=== PATIENT | female | born 1990 | race Caucasian/White ===

== ENCOUNTER 2016-08-31 18:48 | Emergency (ER) | payer MEDICAID ==
[2016-08-31] MEDS ORDERED: Buprenorphine TAB* 8 MG PO ONE ×2 (20:09→21:30)
[2016-08-31 20:52] LABS: Urine Bilirubin Negative (Negative); Urine Glucose Negative (Negative); Urine Nitrite Negative (Negative)
[2016-08-31 21:10] LABS: Hematocrit 39 % (35-47); Hemoglobin 12.9 g/dl (12.0-16.0); Mean Corpuscular HGB Conc 33 g/dl (31-36); Mean Corpuscular Hemoglobin 31 pg (27-31); Mean Corpuscular Volume 94 fL (80-97); Mean Platelet Volume 9 um3 (7.4-10.4); Red Blood Count 4.17 10^6/ul (4.0-5.4); Red Cell Distribution Width 14 % (10.5-15); White Blood Count 13.7 10^3/ul (3.5-10.8)
[2016-08-31 21:15] LABS: Albumin 3.3 g/dL (3.2-5.2); BUN/Creatinine Ratio 15.2 (8-20); Calcium 9.1 mg/dL (8.6-10.3); EGFR African American 212.9 (>60); EGFR Non-African American 165.5 (>60); Globulin 3.7 g/dL (2-4); Potassium 3.8 mmol/L (3.5-5.0); Total Bilirubin 0.4 mg/dL (0.2-1.0)
[2016-08-31 22:40] VITALS: BP 94/58
--- NOTE | 2016-08-31 22:50 | ED ---
Geoffrey Angulo Benjamin, scribed for Terri Tyler MD on 08/31/16 at 2106 . Substance Abuse/Use - HPI Summary HPI Summary: 26yo female who is 7 months was brought in by police for heroin withdrawal. Last use was last night. Unable to obtain full history from the pt as she is currently going through withdrawal and is in distress. - History Of Current Complaint Chief Complaint: EDGeneral Stated Complaint: 7 MONTHS PREG/COMING OFF [facility] Time Seen by Provider: 08/31/16 19:16 Hx Obtained From: Patient Hx From Patient Unobtainable Due To: Other - withdrawal distress ?: Yes Onset/Duration of Drug/ETOH Abuse: Days - yesterday Ingestion History: Type/Name Of Drug - heroin Overdose Characteristics: IV Timing Of Abuse: Binge Use Severity Initially: Moderate Severity Currently: Moderate Alleviating Factor(s): Nothing Associated Signs And Symptoms: Negative - Allergies/Home Medications Allergies/Adverse Reactions: Allergies Allergy/AdvReac Type Severity Reaction Status Date / Time Amoxicillin Allergy Hives Verified 08/31/16 19:00 Azithromycin Allergy Hives Verified 08/31/16 19:00 PMH/Surg Hx/FS Hx/Imm Hx Psychiatric History: Reports: Hx Substance Abuse - heroin Infectious Disease History: No Infectious Disease History: Denies: Traveled Outside the [place] in Last 30 Days - Family History Known Family History: Positive: Unknown - unable to obtain, level 5 caveat - Social History Occupation: Unemployed Lives: With Family Alcohol Use: Occasionally Substance Use Type: Reports: Heroin Substance Use Comment - Amount & Last Used: 08/30/16 Smoking Status (MU): Heavy Every Day Tobacco Smoker Review of Systems - ROS Summary Review of Systems Summary: unable to obtain full ROS, level 5 caveat. Negative: Chest Pain Negative: Shortness Of Breath Negative: Abdominal Pain Negative: Rash All Other Systems Reviewed And Are Negative: No Physical Exam Triage Information Reviewed: Yes Vital Signs On Initial Exam: Initial Vitals Temp Pulse Resp BP Pulse Ox 97.2 F 95 17 129/84 99 08/31/16 18:56 08/31/16 18:56 08/31/16 18:56 08/31/16 18:56 08/31/16 18:56 Vital Signs Reviewed: Yes Appearance: Positive: Ill-Appearing - uncomfortable, Pain Distress - uncomfortable Skin: Positive: Warm, Skin Color Reflects Adequate Perfusion, Other - clamy Head/Face: Positive: Normal Head/Face Inspection Eyes: Positive: Other: - pupils are 6mm wide ENT: Positive: Pharynx normal, TMs normal Neck: Positive: Supple, Nontender Respiratory/Lung Sounds: Positive: Clear to Auscultation, Breath Sounds Present. Negative: Rales, Rhonchi Cardiovascular: Positive: RRR. Negative: Murmur, Rub Abdomen Description: Positive: Nontender, Other: - gravid belly. Negative: Soft Bowel Sounds: Positive: Present Musculoskeletal: Positive: Strength/ROM Intact Neurological: Positive: Sensory/Motor Intact, Alert, Oriented to Person Place, Time, CN Intact II-III Psychiatric: Positive: Affect/Mood Appropriate - [place] Coma Scale Coma Scale Total: 15 Diagnostics - Vital Signs Vital Signs Temp Pulse Resp BP Pulse Ox 08/31/16 19:26 98.9 F 80 16 92/63 98 08/31/16 18:56 97.2 F 95 17 129/84 99 - Laboratory Lab Results: Lab Results 08/31/16 Range/Units 19:15 Urine Color Yellow Urine Appearance Cloudy Urine pH 8.0 (5-9) Ur Specific [place] 1.012 (1.010-1.030) Urine Protein Negative (Negative) Urine Ketones Negative (Negative) Urine Blood Negative (Negative) Urine Nitrate Negative (Negative) Urine Bilirubin Negative (Negative) Urine Urobilinogen Negative (Negative) Ur Leukocyte Esterase Negative (Negative) Urine Glucose Negative (Negative) Result Diagrams: 08/31/16 20:50 08/31/16 20:50 Lab Statement: Any lab studies that have been ordered have been reviewed, and results considered in the medical decision making process. Re-Evaluation - Re-Evaluation First Eval Re-Evaluation Time: 21:28 - Pupils are still wide, still clamy. Will give her the second dose of 8mg Suboxone. Course/Dx - Course Course Of Treatment: pt reports she has used 16 mg of suboxone on the street before but only a few times, gave her 8 mg of buprenorphine followed by a second dose of 8 with some relief of her withdrawel symptoms, wbc slightly elevated (likely 2ndary to 3rd trimester of ) fht were good, pt ok to go - Diagnoses Provider Diagnoses: Acute narcotic withdrawal Discharge - Discharge Plan Condition: Stable Disposition: HOME Patient Education Materials: Opioid Withdrawal (ED) Referrals: [facility] [Outside] [facility] [Outside] Additional Instructions: Patient is medically cleared to go to nursing home. The documentation as recorded by the Geoffrey jang Benjamin accurately reflects the service I personally performed and the decisions made by me, Terri Tyler MD.
== END 2016-08-31 22:43 | disposition home or self-care (01) ==
LOC: ED 18:48
DX: F11.23 Opioid dependence with withdrawal (principal); O26.893 Other specified pregnancy related conditions, third trimester; Z3A.00 Weeks of gestation of pregnancy not specified
CPT/HCPCS: 36415; 80053; 81003; 85025; 99283; A9270-GY

== ENCOUNTER 2017-03-07 17:48 | Inpatient (IN) | payer OTHER ==
[2017-03-07] MEDS ORDERED: NS 0.9% 1000 ML*IV.FLUID IV ONE (22:17)
[2017-03-07] MEDS ORDERED: Ketorolac INJ* 30 MG/ML 1 ML VIAL IV ONE (22:17)
[2017-03-07] MEDS ORDERED: Vancomycin(*) 1,000 MG in NS 0.9% 250 ML* 250 ML IVPB ONE (22:19)
[2017-03-07] MEDS: Acetaminophen TAB* 325 MG PO ONE ×2 (23:15→23:38)
[2017-03-07 23:18] LABS: ABS Basophils 0.1 10^3/ul (0-0.2); ABS Eosinophils 0.4 10^3/ul (0-0.6); ABS Lymphocytes 1.4 10^3/ul (1.0-4.8); ABS Monocytes 0.6 10^3/ul (0-0.8); ABS Nucleated RBC 0 10^3/ul; Eosinophil % 5.7 % (0-6); Hematocrit 35 % (35-47); Hemoglobin 11.8 g/dl (12.0-16.0); Lymphocyte % 18.9 % (25-47); Mean Corpuscular HGB Conc 34 g/dl (31-36); Mean Corpuscular Hemoglobin 29 pg (27-31); Mean Corpuscular Volume 87 fL (80-97); Mean Platelet Volume 9 um3 (7.4-10.4); Nucleated Red Blood Cells % 0; Platelet Count 233 10^3/ul (150-450); Red Blood Count 4.03 10^6/ul (4.0-5.4); Red Cell Distribution Width 14 % (10.5-15); White Blood Count 7.6 10^3/ul (3.5-10.8)
[2017-03-07 23:35] LABS: EGFR Non-African American 119.5 (>60)
[2017-03-07 23:51] LABS: INR 0.99 (0.77-1.02)
[2017-03-08] MEDS ORDERED: Cefepime(*) 2 GM in NS 0.9% 50 ML* 50 ML IVPB ONE (01:06)
--- NOTE | 2017-03-08 01:15 | ED ---
Sadie Angulo Edward, scribed for Judith Su MD on 03/07/17 at 2212 . Upper Extremity Pain - HPI Summary HPI Summary: 26 y/o female presents to the ED c/o R hand swelling and pain starting 3 days ago s/p heroin injection, still present. Pain rated 9/10 at triage. Associated sx: discharge last night; pt states her "abscess" popped last night. Pt states she had a fever earlier (100). Pt injected heroin 4-5 days ago; the pt states the needle was brand-new and used before by the pt. Denies infection previously. - History of Current Complaint Chief Complaint: EDExtremityUpper Stated Complaint: RT HAND ABSCESS Time Seen by Provider: 03/07/17 21:49 Hx Obtained From: Patient Onset/Duration: Started Days Ago Timing: Constant Pain Location: Hand - R Aggravating Factor(s): Nothing Alleviating Factor(s): Nothing Associated Signs & Symptoms: Positive: Swelling, Redness, Fever, Other - discharge - Allergies/Home Medications Allergies/Adverse Reactions: Allergies Allergy/AdvReac Type Severity Reaction Status Date / Time Amoxicillin Allergy Hives Verified 08/31/16 19:00 Azithromycin Allergy Hives Verified 08/31/16 19:00 PMH/Surg Hx/FS Hx/Imm Hx Previously Healthy: No Endocrine/Hematology History: Denies: Other Endocrine/Hematological Disorders - No prior infections Psychiatric History: Reports: Hx Substance Abuse - heroin Infectious Disease History: No Infectious Disease History: Denies: Traveled Outside the [place] in Last 30 Days - Family History Known Family History: Positive: Unknown - unable to obtain, level 5 caveat - Social History Alcohol Use: None Hx Substance Use: Yes Substance Use Type: Reports: Heroin Substance Use Comment - Amount & Last Used: 08/30/16 Hx Tobacco Use: Yes Smoking Status (MU): Heavy Every Day Tobacco Smoker Review of Systems Positive: Fever Eyes: Negative ENT: Negative Cardiovascular: Negative Respiratory: Negative Gastrointestinal: Negative Genitourinary: Negative Musculoskeletal: Negative Positive: Other - redness, swelling, pain and discharge @ R hand Neurological: Negative Psychological: Normal All Other Systems Reviewed And Are Negative: Yes Physical Exam - Summary Physical Exam Summary: VITAL SIGNS: Reviewed. GENERAL: Patient is a well-developed and nourished female who is lying comfortable in the stretcher. Patient is not in any acute respiratory distress. HEAD AND FACE: No signs of trauma. No ecchymosis, hematomas or skull depressions. No sinus tenderness. EYES: PERRLA, EOMI x 2, No injected conjunctiva, no nystagmus. EARS: Hearing grossly intact. Ear canals and tympanic membranes are within normal limits. MOUTH: Oropharynx within normal limits. NECK: Supple, trachea is midline, no adenopathy, no JVD, no carotid bruit, no c- spine tenderness, neck with full ROM. CHEST: Symmetric, no tenderness at palpation LUNGS: Clear to auscultation bilaterally. No wheezing or crackles. CVS: Regular rate and rhythm, S1 and S2 present, no murmurs or gallops appreciated. ABDOMEN: Soft, non-tender. No signs of distention. No rebound no guarding, and no masses palpated. Bowel sounds are normal. EXTREMITIES: FROM in all major joints, no edema, no cyanosis or clubbing. NEURO: Alert and oriented x 3. No acute neurological deficits. Speech is normal and follows commands. SKIN: R hand is swollen, red and tender more over the radial side and more over the dorsal surface. There is no pain with hyperextension of any of the fingers. There is also redness and swelling of R forearm. There is no discharge that I can see. At the R hand there is a small open area but no discharge at around 4 mm in diameter. Triage Information Reviewed: Yes Vital Signs On Initial Exam: Initial Vitals Temp Pulse Resp BP Pulse Ox 99.6 F 87 14 115/84 97 03/07/17 17:55 03/07/17 17:55 03/07/17 17:55 03/07/17 17:55 03/07/17 17:55 Vital Signs Reviewed: Yes - [place] Coma Scale Coma Scale Total: 15 Diagnostics - Vital Signs Vital Signs Temp Pulse Resp BP Pulse Ox 03/07/17 21:26 98.1 F 03/07/17 20:06 100.1 F 90 14 100/65 96 03/07/17 17:55 99.6 F 87 14 115/84 97 - Laboratory Result Diagrams: 03/07/17 23:02 03/07/17 23:02 Lab Statement: Any lab studies that have been ordered have been reviewed, and results considered in the medical decision making process. Re-Evaluation - Re-Evaluation 1 Re-Evaluation Time: 23:27 Comment: Pt wants to sign out AMA 2 Re-Evaluation Time: 01:02 Comment: Pt agrees to be admitted Course/Dx - Course Assessment/Plan: 26 y/o female presents to the ED with R hand pain s/p heroin injection around 4-5 days ago[address] Spoke with Dr. Estrella, who agreed to admit the pt at 01:06. Pt will be admitted, pt is agreeable with plan. - Diagnoses Provider Diagnoses: Cellulitis of right hand - Physician Notifications Discussed Care of Patient With: Albert Estrella Time Discussed With Above Provider: 01:06 Instructed by Provider To: Admit As Inpatient Discharge - Discharge Plan Condition: Stable Disposition: ADMITTED TO [facility] Referrals: Anabela HARPER,Yohannes Ruff [Primary Care Provider] - The documentation as recorded by the Sadie jang Edward accurately reflects the service I personally performed and the decisions made by me, Judith Su MD.
[2017-03-08] MEDS ORDERED: Cefepime(*) 2 GM in D5W 50 ML BAG* 50 ML IVPB ONE (01:20)
[2017-03-08] MEDS ORDERED: Acetaminophen TAB* 325 MG PO PRN (04:33)
[2017-03-08] MEDS ORDERED: Ondansetron INJ* 2 MG/ML VIAL IV PRN (04:33)
[2017-03-08] MEDS ORDERED: NS 0.9% 1000 ML* 1,000 ML IV SCH (04:45)
[2017-03-08] MEDS ORDERED: Vancomycin per Pharmacy* NOTE FOLLOW UP SCH (05:00)
[2017-03-08 05:24] VITALS: BP 93/63
[2017-03-08] MEDS ORDERED: Buprenorphine/Naloxone 8-2 MG SL TAB* 1 TAB PO SCH (06:00)
[2017-03-08] MEDS ORDERED: Omeprazole CAP* 20 MG PO SCH (06:00)
--- NOTE | 2017-03-08 06:39 | HP ---
H&P (Free Text) History and Physical: Combined H&P/Discharge Summary PCP: Dr Peñaloza of [facility] Date/Time: 03/08/2017 0430 CC: R arm pain HPI: Ms King is a 26YO female active heroine addict admitting to injecting 6- 8x/day for past "few years". She was injecting into her R wrist at the posterolateral base of the thumb 4 days ago and "missed" with subsequent development of pain, swelling, and erythema streaking up the arm to the axilla. She denies F/C, sweats, N/V, W/N/T of the hand/fingers, or other issues. PMedHx active heroine addiction Ambulatory Orders NK [No Home Medications Reported] 03/08/17 Allergies Amoxicillin Allergy (Verified 08/31/16 19:00) Hives Azithromycin Allergy (Verified 08/31/16 19:00) Hives PSurgHx eustachian tubes tonsillectomy tubal ligation SocHx: no tobacco or alcohol, 6-8 injections of heroine daily for "a few years" ; lives at home with her mother; unemployed; full code status FamHx: Mother: alive in her 50s, healthy; Father: alive in his 50s, healthy; Sisters x3: healthy; denies others with addiction ROS: as above, otherwise reviewed and all were negative vitals: Vital Signs Temp 37.3 C 03/08/17 05:23 Pulse 86 03/08/17 05:23 Resp 16 03/08/17 05:23 BP 93/63 03/08/17 05:23 Pulse Ox 96 03/08/17 05:23 Intake & Output 03/07/17 03/07/17 03/08/17 11:59 23:59 11:59 Weight 49.895 kg Constitutional: NAD, normally developed, thin, unkempt, malodorous white female HEENM: atraumatic; sclera/conjunctiva: anicteric/clear; hearing: clinically intact; oropharynx: clear, mucosa moist Neck: soft tissue: non-tender; thyroid: normal Pulmonary: clear to auscultation bilaterally, good aeration, no accessory muscle use CV: RR/RR, normal S1S2, no murmur, no carotid bruit, no jugular venous distention, 2+ B DP/PT, RUE edema Abdominal: soft, non-distended, non-tender, no rebound/guarding/rigidity, normoactive bowel sounds, no hepatosplenomegaly or masses, no costovertebral angle tenderness Musculoskeletal: general: grossly intact; gait: stable Integumental: RUE with draining area at the postero-lateral base of the thumb associated with induration and streaking up the arm anteriorly to the axilla Psychiatric orientation: AA&O to PPS affect: calm mood: cooperative eye contact: poor content: seemingly reliable responses: timely insight: poor Testing: Lab Results 03/07/17 03/07/17 03/07/17 Range/Units 23:02 23:02 23:02 WBC (3.5-10.8) 10^3/ul RBC (4.0-5.4) 10^6/ul Hgb (12.0-16.0) g/dl Hct (35-47) % MCV (80-97) fL MCH (27-31) pg MCHC (31-36) g/dl RDW (10.5-15) % Plt Count (150-450) 10^3/ul MPV (7.4-10.4) um3 Neut % (Auto) (38-83) % Lymph % (Auto) (25-47) % [place] % (Auto) (1-9) % Eos % (Auto) (0-6) % Baso % (Auto) (0-2) % Absolute Neuts (auto) (1.5-7.7) 10^3/ul Absolute Lymphs (auto) (1.0-4.8) 10^3/ul Absolute Monos (auto) (0-0.8) 10^3/ul Absolute Eos (auto) (0-0.6) 10^3/ul Absolute Basos (auto) (0-0.2) 10^3/ul Absolute Nucleated RBC 10^3/ul Nucleated RBC % INR (Anticoag Therapy) 0.99 (0.77-1.02) APTT 34.3 (26.0-36.3) seconds Sodium 136 (133-145) mmol/L Potassium 3.6 (3.5-5.0) mmol/L Chloride 99 L (101-111) mmol/L Carbon Dioxide 29 (22-32) mmol/L Anion Gap 8 (2-11) mmol/L BUN 9 (6-24) mg/dL Creatinine 0.61 (0.51-0.95) mg/dL Est GFR ( Amer) 153.7 (>60) Est GFR (Non-Af Amer) 119.5 (>60) BUN/Creatinine Ratio 14.8 (8-20) Glucose 87 (70-100) mg/dL Lactic Acid 1.4 (0.5-2.0) mmol/L Calcium 9.2 (8.6-10.3) mg/dL Total Bilirubin 0.40 (0.2-1.0) mg/dL AST 12 L (13-39) U/L ALT 8 (7-52) U/L Alkaline Phosphatase 58 (34-104) U/L C-Reactive Protein 105.83 H (< 5.00) mg/L Total Protein 7.5 (6.4-8.9) g/dL Albumin 3.5 (3.2-5.2) g/dL Globulin 4.0 (2-4) g/dL Albumin/Globulin Ratio 0.9 L (1-3) Beta HCG, Quant < 0.60 mIU/mL 03/07/17 Range/Units 23:02 WBC 7.6 (3.5-10.8) 10^3/ul RBC 4.03 (4.0-5.4) 10^6/ul Hgb 11.8 L (12.0-16.0) g/dl Hct 35 (35-47) % MCV 87 (80-97) fL MCH 29 (27-31) pg MCHC 34 (31-36) g/dl RDW 14 (10.5-15) % Plt Count 233 (150-450) 10^3/ul MPV 9 (7.4-10.4) um3 Neut % (Auto) 66.4 (38-83) % Lymph % (Auto) 18.9 L (25-47) % [place] % (Auto) 8.0 (1-9) % Eos % (Auto) 5.7 (0-6) % Baso % (Auto) 1.0 (0-2) % Absolute Neuts (auto) 5.0 (1.5-7.7) 10^3/ul Absolute Lymphs (auto) 1.4 (1.0-4.8) 10^3/ul Absolute Monos (auto) 0.6 (0-0.8) 10^3/ul Absolute Eos (auto) 0.4 (0-0.6) 10^3/ul Absolute Basos (auto) 0.1 (0-0.2) 10^3/ul Absolute Nucleated RBC 0 10^3/ul Nucleated RBC % 0 INR (Anticoag Therapy) (0.77-1.02) APTT (26.0-36.3) seconds Sodium (133-145) mmol/L Potassium (3.5-5.0) mmol/L Chloride (101-111) mmol/L Carbon Dioxide (22-32) mmol/L Anion Gap (2-11) mmol/L BUN (6-24) mg/dL Creatinine (0.51-0.95) mg/dL Est GFR ( Amer) (>60) Est GFR (Non-Af Amer) (>60) BUN/Creatinine Ratio (8-20) Glucose (70-100) mg/dL Lactic Acid (0.5-2.0) mmol/L Calcium (8.6-10.3) mg/dL Total Bilirubin (0.2-1.0) mg/dL AST (13-39) U/L ALT (7-52) U/L Alkaline Phosphatase (34-104) U/L C-Reactive Protein (< 5.00) mg/L Total Protein (6.4-8.9) g/dL Albumin (3.2-5.2) g/dL Globulin (2-4) g/dL Albumin/Globulin Ratio (1-3) Beta HCG, Quant mIU/mL Impression: 26F active heroine addict presents with cellulitis & lymphangitis of the RUE Discussion: At the time of admission, Ms King was counseled as to the dire consequences of leaving prior to adequate therapy, including the risk of worsening infection, loss of function of the arm, loss of the arm due to need for amputation, & potential . Despite this as soon as arrived to the floor and learned she would require a chaparone for visitors or to leave the floor, she signed out AMA. DIAGNOSIS & PLAN Primary cellulitis & lymphangitis of the RUE : IVFs : IV vancomycin & cefepime : blood CX : supportive care Secondary active heroine addiction : social service consult planned (not ordered as she signed out AMA prior) : suboxone 8/2mg 0.5 tablet Q8H, titrate to prevent s/s withdrawal Admission Rational: inpatient for IVFs & IV ABX in an IV drug user; inappropriate for outpatient setting DVTp: [id number] Code Status: full
[2017-03-08] MEDS ORDERED: Vancomycin(*) 1,000 MG in NS 0.9% 250 ML* 250 ML IVPB SCH (08:00)
[2017-03-08] MEDS ORDERED: Docusate CAP* 100 MG PO SCH (09:00)
[2017-03-08] MEDS ORDERED: Cefepime 1 GM in Dextrose(*) 1 GM/50 ML BAG IV SCH (13:00)
[2017-03-09] MEDS ORDERED: Vancomycin Trough Check NOTE FOLLOW UP ONE (07:30)
== END 2017-03-08 07:41 | disposition left against medical advice (07) | DRG 383 ==
LOC: ED 17:48 → SUPCPDRO 17:48 → MED 03-08 04:29
PROVIDERS: ADMIT Hospitalist; ATTEND Hospitalist
DX: L03.113 Cellulitis of right upper limb (principal); F11.20 Opioid dependence, uncomplicated; I89.1 Lymphangitis
CPT/HCPCS: 36415; 80053; 83605; 84702; 85025; 85610; 85730; 86140; 87040; A9270-GY; J0692; J1885; J3370